=== PATIENT | female | born 1960 | race Caucasian/White ===

== ENCOUNTER 2016-06-05 09:53 | Inpatient (IN) | payer OTHER ==
[~2016-06-05] VITALS: Ht 160.7 cm; Wt 110.7 kg
[~2016-06-05 09:53] MED LIST: ZYRT10CA PO
[2016-07-01] MEDS ORDERED: INSULIN HUMAN REGULAR 1,000 UNITS/10 ML VIAL SQ PRN (06:30)
[2016-07-01] MEDS ORDERED: SODIUM CHLORID 0.9% 500 ML IV SCH (06:30)
[2016-07-01] MEDS ORDERED: LACTATED RINGER'S 1000 ML IV SCH (06:30)
[2016-07-01] MEDS ORDERED: METOPROLOL TARTRATE 25 MG TAB PO PRN (06:30)
[2016-07-01] MEDS ORDERED: metroNIDAZOLE 500 MG INJ 100 ML IV SCH (06:45)
[2016-07-01] MEDS ORDERED: SCOPOLAMINE 1.5 MG PATCH T-DERMAL SCH (06:45)
[2016-07-01] MEDS ORDERED: VANCOMYCIN 1,250 MG/NS 250 ML (for 70-84 kg) IV SCH ×2 (06:45)
[2016-07-01] MEDS ORDERED: ACETAMINOPHEN 1000 MG/100 ML VIAL IV SCH (06:45)
[2016-07-01] MEDS ORDERED: ONDANSETRON HCL 4 MG/2 ML VIAL IV PUSH SCH (06:45)
[2016-07-01] MEDS ORDERED: APREPITANT 40 MG CAP PO SCH (06:45)
[2016-07-01 07:16] VITALS: BP 135/88; PULSE 70; RESP 16; TEMP 98.8; O2SAT 94
[2016-07-01] MEDS ORDERED: BUPIVACAINE/EPINEPHRINE 0.25% PF 30 ML VIAL ONE (07:31)
[2016-07-01] MEDS ORDERED: MIDAZOLAM HCL 2 MG/2 ML VIAL ONE (07:56)
[2016-07-01] MEDS ORDERED: SUGAMMADEX SODIUM 200 MG/2 ML VIAL IV PUSH ONE ×2 (08:18)
[2016-07-01] MEDS ORDERED: Post-op Orders (for Pharmacy) MISC XX ONE (09:45)
[2016-07-01] MEDS ORDERED: ACETAMINOPHEN 325MG/HYDROcodone 7.5MG/15ML UDC PO PRN (09:45)
[2016-07-01] MEDS ORDERED: NALOXONE HCL 0.4 MG/ML AMP IV PRN (09:45)
[2016-07-01] MEDS ORDERED: SODIUM CHLORIDE 0.9% FLUSH 5 ML FLUSH IVF PRN (09:45)
[2016-07-01] MEDS ORDERED: ACETAMINOPHEN 1000 MG/100 ML VIAL IV PRN (09:45)
[2016-07-01] MEDS ORDERED: MORPHINE SULFATE 30 MG/30 ML PCA IV SCH (09:45)
[2016-07-01] MEDS ORDERED: diphenhydrAMINE HCL 50 MG/ML VIAL IV PRN (09:45)
[2016-07-01] MEDS ORDERED: ENALAPRILAT 1.25 MG/ML VIAL IV PUSH PRN (09:45)
[2016-07-01] MEDS ORDERED: diphenhydrAMINE HCL ELIXIR 12.5 MG/5 ML CUP PO PRN (09:45)
[2016-07-01] MEDS ORDERED: ONDANSETRON HCL 4 MG/2 ML VIAL IV PRN ×2 (09:45)
[2016-07-01] MEDS: D5-1/2 NS + KCL 20 MEQ INJ 1,000 ML IV SCH ×4 (10:00→21:30)
[2016-07-01] MEDS ORDERED: DO NOT ADM ANY ANTICOAGULANT DRUGS XX PRN (10:05)
[2016-07-01] MEDS ORDERED: DICLOFENAC SODIUM 37.5 MG/ML VIAL IV PUSH ONE (10:06)
[2016-07-01] MEDS ORDERED: fentaNYL CITRATE 250 MCG/5 ML AMP ONE (10:14)
[2016-07-01] MEDS: METOCLOPRAMIDE HCL 10 MG/2 ML VIAL IVS SCH ×3 (10:40→21:27)
[2016-07-01] MEDS ORDERED: *morphine SULFATE 8 MG/ML PERIprocedure ONLY ONE (11:01)
[2016-07-01] MEDS ORDERED: PROPOFOL 200 MG/20 ML AMP IV ONE (12:00)
[2016-07-01] MEDS ORDERED: ONDANSETRON HCL 4 MG/2 ML VIAL IV PUSH ONE (12:00)
[2016-07-01] MEDS: RESP: ALBUTEROL 2.5 MG/3 ML NEB (SCH) INH ×2 (12:40→20:00)
[2016-07-01] MEDS ORDERED: ENOXAPARIN SODIUM 40 MG/0.4 ML SYRINGE SQ SCH (14:00)
[2016-07-01] MEDS: PCA - TOTAL MG MORPHINE DELIVERED PER SHIFT SCH ×2 (14:00→21:29)
[2016-07-01] MEDS: ACETAMINOPHEN 325MG/HYDROcodone 7.5MG/15ML UDC PO PRN ×2 (15:14→21:27)
[2016-07-01] MEDS: metroNIDAZOLE 500 MG INJ 100 ML IV SCH (15:14)
[2016-07-01 16:01] VITALS: O2SAT 97
[2016-07-01 20:00] VITALS: BP 101/58; PULSE 60; RESP 18; TEMP 97.2; O2SAT 94
[2016-07-01] MEDS: SODIUM CHLORIDE 0.9% FLUSH 5 ML FLUSH IVF SCH (21:28)
[2016-07-02] VITALS: BP 109/57; PULSE 57; RESP 18; TEMP 96.8; O2SAT 94
[2016-07-02] MEDS: metroNIDAZOLE 500 MG INJ 100 ML IV SCH ×2 (00:49→07:26)
[2016-07-02] MEDS: D5-1/2 NS + KCL 20 MEQ INJ 1,000 ML IV SCH (02:00)
[2016-07-02] MEDS: METOCLOPRAMIDE HCL 10 MG/2 ML VIAL IVS SCH (03:49)
[2016-07-02 04:00] VITALS: BP 123/64; PULSE 59; RESP 18; TEMP 97.6; O2SAT 93
[2016-07-02] MEDS: RESP: ALBUTEROL 2.5 MG/3 ML NEB (SCH) INH ×3 (04:00→09:05)
[2016-07-02] MEDS: PCA - TOTAL MG MORPHINE DELIVERED PER SHIFT SCH (05:40)
[2016-07-02] MEDS ORDERED: SUCRALFATE 1 GM/10 ML CUP PO SCH (06:00)
[2016-07-02 06:59] LABS: AUTOMATED NEUTROPHIL # 4.9 TH/MM3 (1.8-7.7); BASOPHIL % 0.3 % (0.0-2.0); EOSINOPHIL # 0.2 TH/MM3 (0-0.4); EOSINOPHIL % 2.1 % (0.0-4.0); HEMATOCRIT 37.9 % (35.0-46.0); HEMO FLAGS DIFF FINAL; LYMPH % 19.7 % (9.0-44.0); LYMPHOCYTE # 1.4 TH/MM3 (1.0-4.8); MEAN CELL VOLUME 83.7 FL (80.0-100.0); MEAN CORPUSCULAR HEMOGLOBIN 29.6 PG (27.0-34.0); MEAN CORPUSCULAR HGB CONC 35.3 % (32.0-36.0); MONO % 9.1 % (0.0-8.0); NEUT % 68.8 % (16.0-70.0); PLATELET COUNT 181 TH/MM3 (150-450); RED BLOOD COUNT 4.53 MIL/MM3 (4.00-5.30); RED CELL DISTRIBUTION WIDTH 13.6 % (11.6-17.2); WHITE BLOOD COUNT 7.2 TH/MM3 (4.0-11.0)
[2016-07-02] MEDS: SODIUM CHLORIDE 0.9% FLUSH 5 ML FLUSH IVF SCH (07:26)
[2016-07-02 07:27] LABS: BICARBONATE 25.5 MEQ/L (21.0-32.0); POTASSIUM 3.9 MEQ/L (3.5-5.1)
[2016-07-02 08:00] VITALS: BP 127/61; PULSE 64; RESP 16; TEMP 98; O2SAT 93
[2016-07-02] MEDS ORDERED: PANTOPRAZOLE SODIUM 40 MG VIAL IVP SCH (09:00)
[2016-07-02] MEDS ORDERED: PANTOPRAZOLE SOD 40 MG DELAYED RELEASE TAB PO SCH (09:00)
[2016-07-02 09:09] VITALS: O2SAT 95
[2016-07-02] MEDS ORDERED: METOCLOPRAMIDE HCL 10 MG/2 ML VIAL IVS PRN (09:45)
--- NOTE | 2016-07-02 11:20 | HHI.PR ---
Subjective Subjective Notes nausea earlier today better now no cp no sob Objective Vitals/I&O Vital Signs Date Time Temp Pulse Resp B/P Pulse Ox O2 Delivery O2 Flow Rate FiO2 07/02/16 09:09 95 Nasal Cannula 21 07/02/16 08:00 98.0 64 16 127/61 07/01/16 13:00 2 Labs Laboratory Tests Test 07/02/16 06:05 White Blood Count 7.2 Red Blood Count 4.53 Hemoglobin 13.4 Hematocrit 37.9 Mean Corpuscular Volume 83.7 Mean Corpuscular Hemoglobin 29.6 Mean Corpuscular Hemoglobin 35.3 Concent Red Cell Distribution Width 13.6 Platelet Count 181 Mean Platelet Volume 8.2 Neutrophils (%) (Auto) 68.8 Lymphocytes (%) (Auto) 19.7 Monocytes (%) (Auto) 9.1 Eosinophils (%) (Auto) 2.1 Basophils (%) (Auto) 0.3 Neutrophils # (Auto) 4.9 Lymphocytes # (Auto) 1.4 Monocytes # (Auto) 0.7 Eosinophils # (Auto) 0.2 Basophils # (Auto) 0.0 CBC Comment DIFF FINAL Differential Comment Sodium Level 139 Potassium Level 3.9 Chloride Level 106 Carbon Dioxide Level 25.5 Anion Gap 8 Blood Urea Nitrogen 9 Creatinine 0.57 Estimat Glomerular Filtration 109 Rate Random Glucose 110 Calcium Level 8.4 Magnesium Level 2.0 Abdomen: Post-op tenderness Extremities: Perfused A/P Assessment and Plan S/p lap Sleeve doing well d/c home today Cezar Acevedo MD Jul 02, 2016 11:20
--- NOTE | 2016-07-25 00:03 | MP ---
cc: TRAE ACEVEDO DATE OF : 1960 DATE OF SURGERY: 07/01/2016 PREOPERATIVE DIAGNOSIS: Morbid obesity with a BMI of 41. POSTOPERATIVE DIAGNOSIS: Morbid obesity with a BMI of 41. OPERATION: Laparoscopic vertical sleeve gastrectomy over 36-[place] ViSiGi bougie. SURGEON Trae Acevedo MD. ANESTHESIA General endotracheal anesthesia ESTIMATED BLOOD LOSS Scant FINDINGS Fatty liver. Adhesions in the upper abdomen around the greater curve of the stomach. SPECIMENS None COMPLICATIONS None PROCEDURE IN DETAIL The patient was brought to the operating room and placed on the operating table in supine position, bilateral sequential inflation device placed on lower extremities. General anesthesia was instituted. Antibiotics was initiated. The abdomen was prepped and draped sterilely. A point 15 cm distal to the xiphoid in the midline was anesthetized with 0.25% Marcaine with epinephrine. A skin incision was made, 5-mm OptiView port placed under direct vision and pneumoperitoneum created. Under direct vision, three 5-mm left upper quadrant, a 15-mm right upper quadrant, 5-mm right upper quadrant ports placed. Prior to placement of all ports the skin and peritoneum were anesthetized with 0.25% Marcaine with epinephrine. The patient was placed in reverse Trendelenburg position left side up, the Xiomy-Flex retractor was placed. The left lobe of the liver was retracted. The vasculature along the greater curvature of the stomach was using harmonic scalpel starting a distance 5-cm proximal to the pylorus and carried towards the angle of His. The angle of His was taken down bluntly. Posterior ligamentous attachments were sharply . A 36-[place] ViSiGi bougie was placed at the start of the case, was placed on suction. Division of the stomach started 5 cm proximal to the pylorus and carried towards the angle of His to completely excise approximately 80% of the stomach. This was performed using an Palominas Flex stapler at the pylorus. The first firing was with a black load, followed by four green load . All staple loads were reinforced with SeamGuard. A distance of 2 cm was left from the angle incisura and the staple line and a distance of 1 cm left from the GE junction and the staple line. The pylorus was then occluded, methylene blue tinged saline was instilled. There was no evidence of extravasation. The gastrocolic ligament was then sutured to the posterior leaflet of the SeamGuard using a 2-0 Vicryl suture in a running manner. Bleeding points were controlled with Evicel. The excised stomach was removed from the peritoneal cavity through the 15-mm port site in an Endopouch. The fascia at the 15-mm port site was approximated with 0 Vicryl suture. The CO2 was then released, all ports were removed, all skin incisions closed with 4-0 Monocryl. The abdominal wall was cleaned. A sterile dressing was placed. The patient was awakened and taken to the recovery room. MD JANELLE Quiroz/ELLYN /8:56 AM /11:48 PM [id number]
--- NOTE | 2016-08-15 13:46 | HHI.DS ---
Discharge Summary Admission Date Jul 01, 2016 at 05:54 Discharge Date: Jul 02, 2016 Admitting Diagnosis Procedures Laparoscopic vertical sleeve gastrectomy Brief History This is a 56 year old female s/p laparoscopic vertical sleeve gastrectomy. PE at Discharge Alert and awake Cardio: RRR Resp: CTAB Abd: lap sites c/d/i Hospital Course This is a 56 -year-old female status post laparoscopic vertical sleeve gastrectomy. The patient had a non- complicated hospitalization. The patient was able to tolerate a bariatric diet. The patient's pain was controlled using oral pain medications. The patient will follow with Dr. Thompson in the office as indicated on the DC information. Pt Condition on Discharge: Good Discharge Disposition: Discharge Home Discharge Instructions DIET: Follow Instructions for: Bariatric Surgery Diet Activities you can perform: Shower Only-No Bath Lis Varela Aug 15, 2016 13:46
== END 2016-07-02 13:00 | disposition home or self-care (01) | DRG 621 ==
LOC: HSDI 07-01 05:54 → N07A 07-01 14:32
PROVIDERS: ADMIT Surgery; ATTEND Surgery
PROC: 0DB64Z3 Excision of Stomach, Percutaneous Endoscopic Approach, Vertical (ICD-10-PCS; principal; 2016-07-01 08:12)
DX: E66.01 Morbid (severe) obesity due to excess calories (principal); I11.0 Hypertensive heart disease with heart failure; I50.9 Heart failure, unspecified; Z68.41 Body mass index [BMI] 40.0-44.9, adult; E78.5 Hyperlipidemia, unspecified; K21.9 Gastro-esophageal reflux disease without esophagitis
CPT/HCPCS: 80048; 83735; 85025; 94150; 94664; C9113; J0131; J1130; J1650; J2250; J2270; J2405; J2765; J3010; J3370; J3480; J7050; J7120; J7613; J8501

== ENCOUNTER → 2016-06-20 | Outpatient (CLI) | payer OTHER ==
[~2016-06-20] MED LIST changes: +BENA25TA3 PO
[2016-06-20 10:16] LABS: MEAN CELL VOLUME 83.6 FL (80.0-100.0); MEAN CORPUSCULAR HEMOGLOBIN 29.6 PG (27.0-34.0); MEAN CORPUSCULAR HGB CONC 35.4 % (32.0-36.0); PLATELET COUNT 204 TH/MM3 (150-450); RED CELL DISTRIBUTION WIDTH 13.8 % (11.6-17.2); REVIEW FLAG FINAL; WHITE BLOOD COUNT 6.5 TH/MM3 (4.0-11.0)
[2016-06-20 10:36] LABS: APTT (PATIENT) 26.6 SEC (24.3-30.1); PROTHROMBIN TIME - PATIENT 11.2 SEC (9.8-11.6)
[2016-06-20 10:40] LABS: ALKALINE PHOSPHATASE 58 U/L (45-117); ALT (GPT) 38 U/L (10-53); ANION GAP 6 MEQ/L (5-15); AST (GOT) 25 U/L (15-37); BICARBONATE 31.7 MEQ/L (21.0-32.0); BLOOD UREA NITROGEN 19 MG/DL (7-18); CHLORIDE 102 MEQ/L (98-107); GLOMERULAR FILTRATION RATE 82 ML/MIN (>89); GLUCOSE,FASTING 97 MG/DL (74-99); SODIUM (NA) 140 MEQ/L (136-145); TOTAL BILIRUBIN ADULT 1.5 MG/DL (0.2-1.0)
== END ==
LOC: CLAB 09:47
PROVIDERS: ATTEND Surgery
DX: I10 Essential (primary) hypertension (principal); E78.5 Hyperlipidemia, unspecified
CPT/HCPCS: 36415; 80053; 85027; 85610; 85730